=== PATIENT | female | born 1950 | race Asian ===

== ENCOUNTER 2022-04-18 20:37 | Emergency (ER) | payer MEDICARE, MEDICAID ==
[~2022-04-18] VITALS: Ht 154.9 cm; Wt 40.8 kg
[2022-04-18 20:37] VITALS: BP 151/91
--- NOTE | 2022-04-18 20:37 | NUR ---
ESTEFANIA FROM HOME WITH ASTHMA ATTACK, SHE WAS GIVEN AA BREATHING TREATMENT EN ROUTE
[2022-04-18] MEDS ORDERED: ALBUTEROL SULFATE/IPRATROPIU 3 ML SOL IH ONE (21:10)
--- NOTE | 2022-04-18 21:10 | NUR ---
SEEN AND EXAMINED BY DRAKE WITH ORDERS AND CARRIED OUT
--- NOTE | 2022-04-18 21:11 | NUR ---
Toya hearn in ED - 04/18/22 at 2111 by QUYEN RT at bedside for breathing tx
--- NOTE | 2022-04-18 21:15 | NUR ---
RT AT NEGRITO C, ADMINISTERING BREATHING TREATMENT, TOLERATED WELL.
[2022-04-18] MEDS ORDERED: PRED20TA5 PO (21:47)
[2022-04-18] MEDS ORDERED: predniSONE 20 MG TAB PO ONE (21:50)
[2022-04-18] MEDS ORDERED: ALBU0.0912 IH (21:50)
[2022-04-18 22:05] VITALS: BP 133/61
--- NOTE | 2022-04-18 22:05 | NUR ---
Patient discharged with v/s stable. Written and verbal after care instructions given and explained. Patient alert, oriented and verbalized understanding of instructions. Ambulatory with steady gait. All questions addressed prior to discharge. ID band removed. Patient advised to follow up with PMD. Rx of DELTASONE given. Patient educated on indication of medication including possible reaction and side effects. Opportunity to ask questions provided and answered.
== END 2022-04-18 22:05 | disposition home or self-care (01) ==
LOC: MED 20:37
DX: J45.901 Unspecified asthma with (acute) exacerbation (principal)
CPT/HCPCS: 94640; 99283; J7512